=== PATIENT | male | born 1980 | race African-American/Black ===

== ENCOUNTER 2016-05-16 17:16 | Emergency (ER) | payer SELFPAY ==
[~2016-05-16] VITALS: Ht 188 cm; Wt 81.6 kg
[2016-05-16 17:23] VITALS: BP 123/67
== END 2016-05-16 18:04 | disposition left against medical advice (07) ==
LOC: ER 17:26
DX: R07.89 Other chest pain (principal); I25.2 Old myocardial infarction
CPT/HCPCS: 93005